=== PATIENT | male | born 1980 | race Caucasian/White ===

== ENCOUNTER 2022-10-15 07:43 | Outpatient (CLI) | payer BC, SELFPAY | END 2022-10-15 07:44 | disposition home or self-care (01) | PROVIDERS: PCP Family Medicine; Visit Provider Family Medicine | DX: Z00.00 Encounter for general adult medical examination without abnormal findings (principal); R68.82 Decreased libido; Z13.1 Encounter for screening for diabetes mellitus; Z13.6 Encounter for screening for cardiovascular disorders | CPT/HCPCS: 80061; 82947; 84403 ==